=== PATIENT | male | born 1960 | race Caucasian/White ===

== ENCOUNTER 2017-07-31 11:51 | Day surgery (SDC) | payer BC ==
[~2017-07-31] VITALS: Ht 177.8 cm; Wt 86.8 kg
[~2017-07-31 11:51] MED LIST: ATOR20; Aspir 8181 MG PO; BENADRYL25 MG PO; BUSP10 PO; Balsalazide Di750 MG PO; Excedrin Extra1 EACH PO; FISH1000 PO; FOLI1 PO; HYDR1TAB94 PO; MELA3 PO; MOMENI; NADO20 PO; OMEP20ER PO; OSTEO BI-FLEX1 EAC2 PO; Simvastatin20 MG PO; TRAM50 PO; Temazepam15 MG PO
== END 2017-07-31 14:20 | disposition home or self-care (01) ==
LOC: ORSCSDS 11:51
PROVIDERS: Internal Medicine Gastroenterology
PROC: 0DBM8ZX Excision of Descending Colon, Via Natural or Artificial Opening Endoscopic, Diagnostic (ICD-10-PCS; principal; 2017-07-31 13:00)
PROC: 0DBE8ZX Excision of Large Intestine, Via Natural or Artificial Opening Endoscopic, Diagnostic (ICD-10-PCS; principal; 2017-07-31 13:00)
PROC: 0DBP8ZX Excision of Rectum, Via Natural or Artificial Opening Endoscopic, Diagnostic (ICD-10-PCS; principal; 2017-07-31 13:00)
DX: K51.90 Ulcerative colitis, unspecified, without complications (principal); D12.4 Benign neoplasm of descending colon; K57.30 Diverticulosis of large intestine without perforation or abscess without bleeding; K64.8 Other hemorrhoids; Z86.010 Personal history of colon polyps; I10 Essential (primary) hypertension; G47.33 Obstructive sleep apnea (adult) (pediatric); K21.9 Gastro-esophageal reflux disease without esophagitis; Z87.891 Personal history of nicotine dependence; Z79.82 Long term (current) use of aspirin; Z79.899 Other long term (current) drug therapy
CPT/HCPCS: 88305; J7120

== ENCOUNTER 2020-06-29 06:05 | Day surgery (SDC) | payer BC ==
[~2020-06-29] VITALS: Ht 175.3 cm; Wt 84.7 kg
[~2020-06-29 06:05] MED LIST changes: -ATOR20; +ATOR20 PO; +FISH OIL 1,2001 EAC7 PO; -FISH1000 PO; +GLUCHON PO; +NAPR220 PO; +Norco 5-325 Ta1 EACH PO; +TERB250 PO; +Vitamin C100 M1 PO
--- NOTE | 2020-06-29 07:09 | NUR ---
Ambulatory in Day Surgery History, Chart, Medications and Allergies reviewed before start of procedure. Lungs clear T/O to Auscultation. Pre-Op teaching done. Pt verbalizes understanding.
--- NOTE | 2020-06-29 11:15 | NUR ---
Patient's spouse, Christiana is in waiting rm. I sit with Christiana and provide therapeutic listening and a calming presence until Juan R comes out from surgery. Christiana and Juan R voice their appreciation.
--- NOTE | 2020-06-29 11:20 | NUR ---
DISCHARGE SUMMARY PT A&OX4, VSS, Patient up to Ambulate independently. Gait steady. Discharge instructions reviewed with patient. Patient verbalizes understanding. Copy given to patient to take home. IV DC'D X2.
== END 2020-06-29 23:09 | disposition home or self-care (01) ==
LOC: ORSCMMR 06:05 → ORD 07:30 → ORSCMMR 23:09
PROVIDERS: Surgery
PROC: 0YUA4JZ Supplement Bilateral Inguinal Region with Synthetic Substitute, Percutaneous Endoscopic Approach (ICD-10-PCS; principal; 2020-06-29 07:30)
PROC: 8E0W4CZ Robotic Assisted Procedure of Trunk Region, Percutaneous Endoscopic Approach (ICD-10-PCS; principal; 2020-06-29 07:30)
DX: K40.20 Bilateral inguinal hernia, without obstruction or gangrene, not specified as recurrent (principal); I10 Essential (primary) hypertension; E78.5 Hyperlipidemia, unspecified; G47.33 Obstructive sleep apnea (adult) (pediatric); Z87.891 Personal history of nicotine dependence; K21.9 Gastro-esophageal reflux disease without esophagitis; Z79.899 Other long term (current) drug therapy
CPT/HCPCS: 49650; S2900; A9270; C1781; J0690; J1100; J1885; J2250; J2370; J2405; J2704; J2710; J3010; J7120

== ENCOUNTER → 2022-05-15 | Outpatient (CLI) | payer OTHER | END | disposition home or self-care (01) | LOC: LAB SHORT 12:00 → LAB 12:00 | DX: K51.919 Ulcerative colitis, unspecified with unspecified complications (principal) | CPT/HCPCS: 83993 ==

== ENCOUNTER 2022-08-15 08:44 | Day surgery (SDC) | payer OTHER ==
[~2022-08-15] VITALS: Ht 177.8 cm; Wt 80.8 kg
[2022-08-15] MEDS ORDERED: Prednisone10 MG (09:10)
[2022-08-15] MEDS ORDERED: PRED5 (09:10)
--- NOTE | 2022-08-15 09:35 | NUR ---
08/15/22 0935 Joanna Scanlon TWO ATTEPTS AT IV. FIRST ATTEMPT IN R HAND INFILTRATED BY MA. SECOND ATTEMPT IN R WRIST SUCCESSFUL.
[2022-08-15 12:13] VITALS: BP 109/65
== END 2022-08-15 11:40 | disposition home or self-care (01) ==
LOC: ORSCSDS 08:44
PROVIDERS: Internal Medicine Gastroenterology
PROC: 0DBL8ZX Excision of Transverse Colon, Via Natural or Artificial Opening Endoscopic, Diagnostic (ICD-10-PCS; principal; 2022-08-15 10:00)
PROC: 0DBN8ZX Excision of Sigmoid Colon, Via Natural or Artificial Opening Endoscopic, Diagnostic (ICD-10-PCS; principal; 2022-08-15 10:00)
PROC: 0DBH8ZX Excision of Cecum, Via Natural or Artificial Opening Endoscopic, Diagnostic (ICD-10-PCS; principal; 2022-08-15 10:00)
PROC: 0DBK8ZX Excision of Ascending Colon, Via Natural or Artificial Opening Endoscopic, Diagnostic (ICD-10-PCS; principal; 2022-08-15 10:00)
PROC: 0DBM8ZX Excision of Descending Colon, Via Natural or Artificial Opening Endoscopic, Diagnostic (ICD-10-PCS; principal; 2022-08-15 10:00)
DX: K51.919 Ulcerative colitis, unspecified with unspecified complications (principal); K92.1 Melena; I10 Essential (primary) hypertension; E78.5 Hyperlipidemia, unspecified; K64.4 Residual hemorrhoidal skin tags; K57.30 Diverticulosis of large intestine without perforation or abscess without bleeding; Z87.891 Personal history of nicotine dependence; Z79.82 Long term (current) use of aspirin; Z79.899 Other long term (current) drug therapy
CPT/HCPCS: 88305; J2704; J7120

== ENCOUNTER → 2023-03-09 | Outpatient (CLI) | payer MEDICARE, OTHER ==
[~2023-03-09] MED LIST changes: +PRED5; +Prednisone10 MG
[2023-03-09 19:55] LABS: Adenovirus F 40/41 Not Detected (NOT DETECT); Astrovirus Not Detected (NOT DETECT); Campylobacter Sp Not Detected (NOT DETECT); Cryptosporidium Not Detected (NOT DETECT); Cyclospora Cayetanensis Not Detected (NOT DETECT); E. Coli O157 Not Detected (NOT DETECT); Entamoeba Histolytica Not Detected (NOT DETECT); Enteroaggregative E. coli-EAEC Not Detected (NOT DETECT); Enteropathogenic E. coli-EPEC Not Detected (NOT DETECT); Enterotoxigenic E. coli-ETEC Not Detected (NOT DETECT); Giardia Lamblia Not Detected (NOT DETECT); Norovirus GI/GII Not Detected (NOT DETECT); Plesiomonas Shigelloides Not Detected (NOT DETECT); Rotavirus A Not Detected (NOT DETECT); Salmonella Sp Not Detected (NOT DETECT); Sapovirus Not Detected (NOT DETECT); Shiga Toxin-prod E. coli-STEC Not Detected (NOT DETECT); Shigella/Enteroin E. coli-EIEC Not Detected (NOT DETECT); Vibrio Cholerae Not Detected (NOT DETECT); Vibrio Sp Not Detected (NOT DETECT); Yersinia Enterocolitica Not Detected (NOT DETECT)
== END ==
LOC: LAB 12:42 → LAB SHORT 12:42
PROVIDERS: Physician Assistant Medical
DX: K51.919 Ulcerative colitis, unspecified with unspecified complications (principal)
CPT/HCPCS: 87507

== ENCOUNTER 2023-06-18 02:48 | Day surgery (SDC) | payer MEDICARE, OTHER ==
[2023-06-18] MEDS ORDERED: Infliximab-DYYB 400 MG in NS 250 ML IV SCH (06:00)
[2023-06-18] MEDS ORDERED: Acetaminophen 325 MG TABLET PO SCH (07:00)
[2023-06-18] MEDS ORDERED: DiphenhydrAMINE HCL 25 MG Cap PO SCH (07:00)
[2023-06-18] MEDS ORDERED: Hydrocortisone Sod Succinate 100 MG Vial IV SCH (07:00)
[2023-06-18 15:10] VITALS: BP 148/89
[2023-06-18 15:50] VITALS: BP 140/94
[2023-06-18 16:03] VITALS: BP 128/93
[2023-06-18 16:16] VITALS: BP 128/87
[2023-06-18 16:32] VITALS: BP 128/86
[2023-06-18 17:02] VITALS: BP 131/90
== END 2023-06-18 17:34 | disposition home or self-care (01) ==
LOC: ATC 02:48
DX: K51.919 Ulcerative colitis, unspecified with unspecified complications (principal); K21.9 Gastro-esophageal reflux disease without esophagitis; I10 Essential (primary) hypertension; I25.10 Atherosclerotic heart disease of native coronary artery without angina pectoris; E78.5 Hyperlipidemia, unspecified; Z87.891 Personal history of nicotine dependence; Z79.82 Long term (current) use of aspirin; Z79.899 Other long term (current) drug therapy; Z79.52 Long term (current) use of systemic steroids
CPT/HCPCS: 96375; 96413; 96415; A9270; J1720; J7050; Q5103

== ENCOUNTER 2023-07-30 02:08 | Day surgery (SDC) | payer MEDICARE, OTHER ==
[2023-07-30] MEDS ORDERED: Infliximab-DYYB 400 MG in NS 250 ML IV SCH (06:00)
[2023-07-30] MEDS ORDERED: Hydrocortisone Sod Succinate 100 MG Vial IV SCH (06:55)
[2023-07-30] MEDS ORDERED: Acetaminophen 325 MG TABLET PO SCH (06:55)
[2023-07-30] MEDS ORDERED: DiphenhydrAMINE HCL 25 MG Cap PO SCH (06:55)
[2023-07-30 14:00] VITALS: BP 143/94
== END 2023-07-30 16:45 | disposition home or self-care (01) ==
LOC: ATC 02:08
DX: K51.919 Ulcerative colitis, unspecified with unspecified complications (principal); K21.9 Gastro-esophageal reflux disease without esophagitis; I10 Essential (primary) hypertension; E78.5 Hyperlipidemia, unspecified; I25.10 Atherosclerotic heart disease of native coronary artery without angina pectoris; Z87.891 Personal history of nicotine dependence; Z79.82 Long term (current) use of aspirin; Z79.899 Other long term (current) drug therapy
CPT/HCPCS: 96413; 96415; J7050; Q5103

== ENCOUNTER → 2023-10-13 | Outpatient (CLI) | payer MEDICARE, OTHER ==
[~2023-10-13] MED LIST changes: +CORGARD20 MG PO
[2023-10-14 05:52] LABS: Campylobacter Sp Not Detected (NOT DETECT); Plesiomonas Shigelloides Not Detected (NOT DETECT); Salmonella Sp Not Detected (NOT DETECT); Vibrio Cholerae Not Detected (NOT DETECT); Vibrio Sp Not Detected (NOT DETECT); Yersinia Enterocolitica Not Detected (NOT DETECT)
[2023-10-14 05:53] LABS: Adenovirus F 40/41 Not Detected (NOT DETECT); Astrovirus Not Detected (NOT DETECT); Cryptosporidium Not Detected (NOT DETECT); Cyclospora Cayetanensis Not Detected (NOT DETECT); E. Coli O157 Not Detected (NOT DETECT); Entamoeba Histolytica Not Detected (NOT DETECT); Enteroaggregative E. coli-EAEC Not Detected (NOT DETECT); Enteropathogenic E. coli-EPEC Detected (NOT DETECT); Enterotoxigenic E. coli-ETEC Detected (NOT DETECT); Giardia Lamblia Not Detected (NOT DETECT); Norovirus GI/GII Not Detected (NOT DETECT); Rotavirus A Not Detected (NOT DETECT); Sapovirus Not Detected (NOT DETECT); Shiga Toxin-prod E. coli-STEC Not Detected (NOT DETECT); Shigella/Enteroin E. coli-EIEC Not Detected (NOT DETECT)
== END | disposition home or self-care (01) ==
LOC: LAB 17:12 → LAB SHORT 17:12
PROVIDERS: Physician Assistant Medical
DX: K51.00 Ulcerative (chronic) pancolitis without complications (principal)
CPT/HCPCS: 87507

== ENCOUNTER → 2023-10-29 | Outpatient (CLI) | payer MEDICARE, OTHER ==
[~2023-10-29] MED LIST changes: -CORGARD20 MG PO
[2023-10-30 15:13] LABS: Campylobacter Sp Not Detected (NOT DETECT); Enteroaggregative E. coli-EAEC Not Detected (NOT DETECT); Plesiomonas Shigelloides Not Detected (NOT DETECT); Salmonella Sp Not Detected (NOT DETECT); Vibrio Cholerae Not Detected (NOT DETECT); Vibrio Sp Not Detected (NOT DETECT); Yersinia Enterocolitica Not Detected (NOT DETECT)
[2023-10-30 15:14] LABS: Adenovirus F 40/41 Not Detected (NOT DETECT); Astrovirus Not Detected (NOT DETECT); Cryptosporidium Not Detected (NOT DETECT); Cyclospora Cayetanensis Not Detected (NOT DETECT); E. Coli O157 Not Detected (NOT DETECT); Entamoeba Histolytica Not Detected (NOT DETECT); Enteropathogenic E. coli-EPEC Not Detected (NOT DETECT); Enterotoxigenic E. coli-ETEC Not Detected (NOT DETECT); Giardia Lamblia Not Detected (NOT DETECT); Norovirus GI/GII Not Detected (NOT DETECT); Rotavirus A Not Detected (NOT DETECT); Sapovirus Not Detected (NOT DETECT); Shiga Toxin-prod E. coli-STEC Not Detected (NOT DETECT); Shigella/Enteroin E. coli-EIEC Not Detected (NOT DETECT)
[2023-11-03 21:19] LABS: CALPROTECTIN,FECAL >3000 ug/g (<=49)
== END ==
LOC: LAB 11:02 → LAB SHORT 11:02
PROVIDERS: Physician Assistant Medical
DX: K51.00 Ulcerative (chronic) pancolitis without complications (principal)
CPT/HCPCS: 83993; 87507

== ENCOUNTER 2023-11-19 02:42 | Day surgery (SDC) | payer MEDICARE, OTHER ==
[2023-11-19] MEDS ORDERED: Infliximab-DYYB 400 MG in NS 250 ML IV SCH (06:00)
[2023-11-19 14:03] VITALS: BP 126/75
[2023-11-19] MEDS ORDERED: CORGARD20 MG PO (14:30)
== END 2023-11-19 16:56 | disposition home or self-care (01) ==
LOC: ATC 02:42
DX: K51.919 Ulcerative colitis, unspecified with unspecified complications (principal); K21.9 Gastro-esophageal reflux disease without esophagitis; I10 Essential (primary) hypertension; E78.5 Hyperlipidemia, unspecified; Z87.891 Personal history of nicotine dependence; Z79.82 Long term (current) use of aspirin; Z79.899 Other long term (current) drug therapy
CPT/HCPCS: 96413; 96415; J7050; Q5103

== ENCOUNTER 2023-12-17 02:10 | Day surgery (SDC) | payer MEDICARE, OTHER ==
[~2023-12-17] VITALS: Wt 82.9 kg
[~2023-12-17 02:10] MED LIST changes: +CORGARD20 MG PO
[2023-12-17] MEDS ORDERED: Infliximab-DYYB 400 MG in NS 250 ML IV SCH (07:00)
[2023-12-17 14:00] VITALS: BP 144/89
== END 2023-12-17 17:00 | disposition home or self-care (01) ==
LOC: ATC 02:10
DX: K51.919 Ulcerative colitis, unspecified with unspecified complications (principal); K21.9 Gastro-esophageal reflux disease without esophagitis; I10 Essential (primary) hypertension; E78.5 Hyperlipidemia, unspecified; I25.10 Atherosclerotic heart disease of native coronary artery without angina pectoris; Z87.891 Personal history of nicotine dependence; Z79.82 Long term (current) use of aspirin; Z79.899 Other long term (current) drug therapy
CPT/HCPCS: 96413; 96415; J7050; Q5103

== ENCOUNTER 2024-01-14 02:47 | Day surgery (SDC) | payer MEDICARE, OTHER ==
[~2024-01-14 02:47] MED LIST changes: +Infliximab-DYYB 400 MG in NS 250 ML IV SCH
[2024-01-14 08:00] VITALS: BP 127/88
== END 2024-01-14 11:02 | disposition home or self-care (01) ==
LOC: ATC 02:47
DX: K51.919 Ulcerative colitis, unspecified with unspecified complications (principal); K21.9 Gastro-esophageal reflux disease without esophagitis; I10 Essential (primary) hypertension; E78.5 Hyperlipidemia, unspecified; I25.10 Atherosclerotic heart disease of native coronary artery without angina pectoris; Z79.82 Long term (current) use of aspirin; Z79.899 Other long term (current) drug therapy
CPT/HCPCS: 96413; 96415; J7050; Q5103

== ENCOUNTER → 2024-01-26 | Outpatient (CLI) | payer MEDICARE, OTHER ==
[~2024-01-26] MED LIST changes: -Infliximab-DYYB 400 MG in NS 250 ML IV SCH
[2024-01-29 02:43] LABS: HSV 1 SUBTYPE BY PCR Not Detected; HSV 2 SUBTYPE BY PCR Detected; HSV SUBTYPE SOURCE UPPER LIP/SKIN
== END ==
LOC: LAB 08:11 → LAB SHORT 08:11
PROVIDERS: Physician Assistant
DX: L73.9 Follicular disorder, unspecified (principal); B00.1 Herpesviral vesicular dermatitis
CPT/HCPCS: 87070; 87205; 87529

== ENCOUNTER 2024-02-11 03:20 | Day surgery (SDC) | payer MEDICARE, OTHER ==
[~2024-02-11] VITALS: Wt 88.3 kg
[~2024-02-11 03:20] MED LIST changes: +Infliximab-DYYB 400 MG in NS 250 ML IV SCH
[2024-02-11 08:05] VITALS: BP 131/98
== END 2024-02-11 11:29 | disposition home or self-care (01) ==
LOC: ATC 03:20
DX: K51.919 Ulcerative colitis, unspecified with unspecified complications (principal); K21.9 Gastro-esophageal reflux disease without esophagitis; E78.5 Hyperlipidemia, unspecified; I10 Essential (primary) hypertension; Z87.891 Personal history of nicotine dependence; Z79.899 Other long term (current) drug therapy
CPT/HCPCS: 96413; 96415; J7050; Q5103

== ENCOUNTER → 2024-02-17 | Outpatient (CLI) | payer MEDICARE, OTHER ==
[~2024-02-17] MED LIST changes: -Infliximab-DYYB 400 MG in NS 250 ML IV SCH
[2024-02-19 12:08] LABS: CALPROTECTIN,FECAL 82 ug/g (<=49)
== END ==
LOC: LAB 12:30 → LAB SHORT 12:30
PROVIDERS: Hospitalist
DX: K51.00 Ulcerative (chronic) pancolitis without complications (principal)
CPT/HCPCS: 83993

== ENCOUNTER 2024-04-07 06:03 | Day surgery (SDC) | payer MEDICARE, OTHER ==
[~2024-04-07 06:03] MED LIST changes: +Infliximab-DYYB 400 MG in NS 250 ML IV SCH
[2024-04-07 09:26] VITALS: BP 117/76
== END 2024-04-07 12:10 | disposition home or self-care (01) ==
LOC: ATC 06:03
DX: K51.919 Ulcerative colitis, unspecified with unspecified complications (principal); K21.9 Gastro-esophageal reflux disease without esophagitis; E78.5 Hyperlipidemia, unspecified; I10 Essential (primary) hypertension; Z86.0101 Personal history of adenomatous and serrated colon polyps; Z87.891 Personal history of nicotine dependence; Z79.82 Long term (current) use of aspirin; Z79.899 Other long term (current) drug therapy; Z79.52 Long term (current) use of systemic steroids
CPT/HCPCS: 96413; 96415; J7050; Q5103

== ENCOUNTER 2024-05-05 02:35 | Day surgery (SDC) | payer MEDICARE, OTHER ==
[~2024-05-05] VITALS: Wt 87.8 kg
[~2024-05-05 02:35] MED LIST changes: -Infliximab-DYYB 400 MG in NS 250 ML IV SCH
[2024-05-05] MEDS ORDERED: Infliximab-DYYB 400 MG in NS 250 ML IV SCH (06:00)
[2024-05-05 09:30] VITALS: BP 119/78
== END 2024-05-05 12:34 | disposition home or self-care (01) ==
LOC: ATC 02:35
DX: K51.919 Ulcerative colitis, unspecified with unspecified complications (principal); K21.9 Gastro-esophageal reflux disease without esophagitis; I10 Essential (primary) hypertension; E78.5 Hyperlipidemia, unspecified; Z87.891 Personal history of nicotine dependence
CPT/HCPCS: 96413; 96415; J7050; Q5103

== ENCOUNTER 2024-06-01 02:40 | Day surgery (SDC) | payer MEDICARE, OTHER ==
[2024-06-01] MEDS ORDERED: Infliximab-DYYB 400 MG in NS 250 ML IV SCH (06:00)
[2024-06-01 14:28] VITALS: BP 150/86
== END 2024-06-01 17:05 | disposition home or self-care (01) ==
LOC: ATC 02:40
DX: K51.00 Ulcerative (chronic) pancolitis without complications (principal); K21.9 Gastro-esophageal reflux disease without esophagitis; E78.5 Hyperlipidemia, unspecified; I10 Essential (primary) hypertension; Z79.899 Other long term (current) drug therapy
CPT/HCPCS: J7050; Q5103

== ENCOUNTER → 2024-06-28 | Outpatient (CLI) | payer MEDICARE, OTHER ==
[2024-07-01 20:02] LABS: CALPROTECTIN,FECAL 731 ug/g (<=49)
== END ==
LOC: LAB 10:54 → LAB SHORT 10:54
PROVIDERS: Physician Assistant Medical
DX: K51.00 Ulcerative (chronic) pancolitis without complications (principal); K51.919 Ulcerative colitis, unspecified with unspecified complications
CPT/HCPCS: 83993

== ENCOUNTER 2024-06-30 03:55 | Day surgery (SDC) | payer MEDICARE, OTHER ==
[2024-06-30] MEDS ORDERED: Vedolizumab 300 MG in NS 250 ML IV SCH (06:00)
[2024-06-30 08:12] VITALS: BP 134/85
== END 2024-06-30 09:30 | disposition home or self-care (01) ==
LOC: ATC 03:55
DX: K51.00 Ulcerative (chronic) pancolitis without complications (principal); K21.9 Gastro-esophageal reflux disease without esophagitis; I10 Essential (primary) hypertension; Z87.891 Personal history of nicotine dependence
CPT/HCPCS: 96365; J3380; J7050

== ENCOUNTER 2024-07-14 02:44 | Day surgery (SDC) | payer MEDICARE, OTHER ==
[2024-07-14] MEDS ORDERED: Vedolizumab 300 MG in NS 250 ML IV SCH (06:00)
[2024-07-14 07:58] VITALS: BP 114/82
== END 2024-07-14 09:14 | disposition home or self-care (01) ==
LOC: ATC 02:44
DX: K51.00 Ulcerative (chronic) pancolitis without complications (principal); K21.9 Gastro-esophageal reflux disease without esophagitis; I10 Essential (primary) hypertension; E78.5 Hyperlipidemia, unspecified; Z87.891 Personal history of nicotine dependence; Z79.899 Other long term (current) drug therapy; Z86.0101 Personal history of adenomatous and serrated colon polyps
CPT/HCPCS: 96365; J3380; J7050

== ENCOUNTER 2024-08-11 03:13 | Day surgery (SDC) | payer MEDICARE, OTHER ==
[2024-08-11] MEDS ORDERED: Vedolizumab 300 MG in NS 250 ML IV SCH (06:00)
[2024-08-11 08:02] VITALS: BP 123/75
== END 2024-08-11 09:21 | disposition home or self-care (01) ==
LOC: ATC 03:13
DX: K51.919 Ulcerative colitis, unspecified with unspecified complications (principal); K21.9 Gastro-esophageal reflux disease without esophagitis; I10 Essential (primary) hypertension; E78.5 Hyperlipidemia, unspecified; Z79.899 Other long term (current) drug therapy; Z87.891 Personal history of nicotine dependence
CPT/HCPCS: 96365; J3380; J7050

== ENCOUNTER 2024-09-01 06:09 | Day surgery (SDC) | payer MEDICARE, OTHER ==
[~2024-09-01] VITALS: Ht 175.3 cm; Wt 84.7 kg
[~2024-09-01 06:09] MED LIST changes: +Balanced Salt Epinephrine Irrigation Solution 500 mL IR SCH; +Diazepam 5 MG Tab PO PRN; +Diazepam 5 MG Tab PO SCH; +Lidocaine HCl/Pf 1% 5 ML VIAL XX SCH; +Moxifloxacin HCL 0.5 MG/0.1 ML 0.4MLSYR LEFTEYE SCH; +Ondansetron 4 MG SoluTab MM PRN; +PHENYLEPHRINE\\TROPICAMIDE\\TETRACAINE OPHTHALMIC DILATING SOLN LEFTEYE PRN; +Povidone-Iodine 450 DROP/30 ML Solution LEFTEYE SCH; +Povidone-Iodine 450 DROP/30 ML Solution ONE; +Tetracaine HCl/Pf 0.5% Opth Soln 4 ml ONE; +Triamcinolone Inj Susp 40 MG / ML 1ML Vial INJ SCH
[2024-09-01] MEDS ORDERED: Diazepam 10 MG Tab ONE (06:20)
[2024-09-01] MEDS ORDERED: ENTYVIO300 M1 (06:33)
--- NOTE | 2024-09-01 06:44 | NUR ---
09/01/24 0644 Marlene French PT RATES ANXIETY 0/10 UPON ARRIVAL AND NOW.
[2024-09-01] MEDS ORDERED: Triamcinolone Inj Susp 40 MG / ML 1ML Vial ONE (06:48)
[2024-09-01] MEDS ORDERED: Lidocaine HCl/Pf 1% 5 ML VIAL ONE (06:49)
--- NOTE | 2024-09-01 07:41 | NUR ---
09/01/24 0741 Gabi Mccullough BP-122/87 P-54 SPO2-98% 10L BLOW BY O2
[2024-09-01 07:54] VITALS: BP 118/89
--- NOTE | 2024-09-01 07:55 | NUR ---
09/01/[address] AT BEDSIDE
== END 2024-09-01 08:14 | disposition home or self-care (01) ==
LOC: ORSCSDS 06:09
PROVIDERS: Ophthalmology
PROC: 08RK3JZ Replacement of Left Lens with Synthetic Substitute, Percutaneous Approach (ICD-10-PCS; principal; 2024-09-01 07:30)
DX: H25.813 Combined forms of age-related cataract, bilateral (principal); H34.8322 Tributary (branch) retinal vein occlusion, left eye, stable; H21.233 Degeneration of iris (pigmentary), bilateral; H40.003 Preglaucoma, unspecified, bilateral; H52.13 Myopia, bilateral; H52.203 Unspecified astigmatism, bilateral; H52.4 Presbyopia; F41.9 Anxiety disorder, unspecified; E78.5 Hyperlipidemia, unspecified; I10 Essential (primary) hypertension; Z79.899 Other long term (current) drug therapy
CPT/HCPCS: A9270; J2003; J3301; V2632

== ENCOUNTER → 2024-11-24 | Outpatient (CLI) | payer MEDICARE, OTHER ==
[~2024-11-24] MED LIST changes: -Balanced Salt Epinephrine Irrigation Solution 500 mL IR SCH; -Diazepam 5 MG Tab PO PRN; -Diazepam 5 MG Tab PO SCH; +ENTYVIO300 M1; -Lidocaine HCl/Pf 1% 5 ML VIAL XX SCH; -Moxifloxacin HCL 0.5 MG/0.1 ML 0.4MLSYR LEFTEYE SCH; -Ondansetron 4 MG SoluTab MM PRN; -PHENYLEPHRINE\\TROPICAMIDE\\TETRACAINE OPHTHALMIC DILATING SOLN LEFTEYE PRN; -Povidone-Iodine 450 DROP/30 ML Solution LEFTEYE SCH; -Povidone-Iodine 450 DROP/30 ML Solution ONE; -Tetracaine HCl/Pf 0.5% Opth Soln 4 ml ONE; -Triamcinolone Inj Susp 40 MG / ML 1ML Vial INJ SCH
[2024-11-24 17:05] LABS: Campylobacter Sp Not Detected (NOT DETECT); E. Coli O157 Not Detected (NOT DETECT); Enteroaggregative E. coli-EAEC Not Detected (NOT DETECT); Enteropathogenic E. coli-EPEC Detected (NOT DETECT); Enterotoxigenic E. coli-ETEC Not Detected (NOT DETECT); Salmonella Sp Not Detected (NOT DETECT); Shiga Toxin-prod E. coli-STEC Not Detected (NOT DETECT); Shigella/Enteroin E. coli-EIEC Not Detected (NOT DETECT); Vibrio Sp Not Detected (NOT DETECT)
[2024-11-29 18:41] LABS: CALPROTECTIN,FECAL >3000 ug/g (<=49)
== END ==
LOC: LAB SHORT 07:45 → LAB 07:45
PROVIDERS: Physician Assistant Medical
DX: R19.7 Diarrhea, unspecified (principal)
CPT/HCPCS: 83993; 87507

== ENCOUNTER 2024-12-27 08:00 | Day surgery (SDC) | payer MEDICARE, OTHER ==
[~2024-12-27] VITALS: Ht 175.3 cm; Wt 79.5 kg
[2024-12-27] MEDS ORDERED: FLUT.05NI (08:26)
[2024-12-27 10:40] VITALS: BP 96/70
== END 2024-12-27 10:40 | disposition home or self-care (01) ==
LOC: ORSCSDS 08:00
PROVIDERS: Internal Medicine Gastroenterology
PROC: 0DBM8ZX Excision of Descending Colon, Via Natural or Artificial Opening Endoscopic, Diagnostic (ICD-10-PCS; principal; 2024-12-27 09:30)
PROC: 0DBP8ZX Excision of Rectum, Via Natural or Artificial Opening Endoscopic, Diagnostic (ICD-10-PCS; principal; 2024-12-27 09:30)
PROC: 0DBN8ZX Excision of Sigmoid Colon, Via Natural or Artificial Opening Endoscopic, Diagnostic (ICD-10-PCS; principal; 2024-12-27 09:30)
PROC: 0DBH8ZX Excision of Cecum, Via Natural or Artificial Opening Endoscopic, Diagnostic (ICD-10-PCS; principal; 2024-12-27 09:30)
PROC: 0DBK8ZX Excision of Ascending Colon, Via Natural or Artificial Opening Endoscopic, Diagnostic (ICD-10-PCS; principal; 2024-12-27 09:30)
PROC: 0DBL8ZX Excision of Transverse Colon, Via Natural or Artificial Opening Endoscopic, Diagnostic (ICD-10-PCS; principal; 2024-12-27 09:30)
DX: K51.90 Ulcerative colitis, unspecified, without complications (principal); Z86.0101 Personal history of adenomatous and serrated colon polyps; I10 Essential (primary) hypertension; E78.5 Hyperlipidemia, unspecified; K21.9 Gastro-esophageal reflux disease without esophagitis; F41.1 Generalized anxiety disorder; Z79.899 Other long term (current) drug therapy; Z87.891 Personal history of nicotine dependence
CPT/HCPCS: 88305; J2704; J7120

== ENCOUNTER → 2025-02-13 | Outpatient (CLI) | payer MEDICARE, OTHER ==
[~2025-02-13] MED LIST changes: +FLUT.05NI
[2025-02-15 16:03] LABS: CALPROTECTIN,FECAL 414 ug/g (<=49)
== END ==
LOC: LAB 11:14 → LAB SHORT 11:14
PROVIDERS: Hospitalist
DX: K51.00 Ulcerative (chronic) pancolitis without complications (principal)
CPT/HCPCS: 83993

== ENCOUNTER → 2025-02-14 | Outpatient (CLI) | payer MEDICARE, OTHER ==
[2025-02-14 15:04] LABS: Campylobacter Sp Not Detected (NOT DETECT); E. Coli O157 Not Detected (NOT DETECT); Enteroaggregative E. coli-EAEC Not Detected (NOT DETECT); Enteropathogenic E. coli-EPEC Not Detected (NOT DETECT); Enterotoxigenic E. coli-ETEC Not Detected (NOT DETECT); Salmonella Sp Not Detected (NOT DETECT); Shiga Toxin-prod E. coli-STEC Not Detected (NOT DETECT); Shigella/Enteroin E. coli-EIEC Not Detected (NOT DETECT); Vibrio Sp Not Detected (NOT DETECT)
== END | disposition home or self-care (01) ==
LOC: LAB SHORT 11:51 → LAB 11:51
PROVIDERS: Hospitalist
DX: R19.7 Diarrhea, unspecified (principal)
CPT/HCPCS: 87507

== ENCOUNTER 2025-03-22 00:40 | Day surgery (SDC) | payer MEDICARE, OTHER ==
[2025-03-22 08:11] VITALS: BP 139/79
== END 2025-03-22 09:11 | disposition home or self-care (01) ==
LOC: ATC 00:40
DX: K51.00 Ulcerative (chronic) pancolitis without complications (principal); H34.8322 Tributary (branch) retinal vein occlusion, left eye, stable; K21.9 Gastro-esophageal reflux disease without esophagitis; E78.5 Hyperlipidemia, unspecified; I10 Essential (primary) hypertension; Z87.891 Personal history of nicotine dependence; Z79.899 Other long term (current) drug therapy
CPT/HCPCS: 96365; J3380; J7050

== ENCOUNTER → 2025-03-28 | Outpatient (CLI) | payer MEDICARE, OTHER ==
[2025-03-28 16:24] LABS: Campylobacter Sp Not Detected (NOT DETECT); E. Coli O157 Not Detected (NOT DETECT); Enteroaggregative E. coli-EAEC Not Detected (NOT DETECT); Enteropathogenic E. coli-EPEC Not Detected (NOT DETECT); Enterotoxigenic E. coli-ETEC Not Detected (NOT DETECT); Salmonella Sp Not Detected (NOT DETECT); Shiga Toxin-prod E. coli-STEC Not Detected (NOT DETECT); Shigella/Enteroin E. coli-EIEC Not Detected (NOT DETECT); Vibrio Sp Not Detected (NOT DETECT)
[2025-03-30 09:00] LABS: CALPROTECTIN,FECAL >3000 ug/g (<=49)
== END ==
LOC: LAB SHORT 12:53 → LAB 12:53
PROVIDERS: Physician Assistant Medical
DX: K51.919 Ulcerative colitis, unspecified with unspecified complications (principal)
CPT/HCPCS: 83993; 87507